=== PATIENT | male | born 1980 | race Caucasian/White ===

== ENCOUNTER 2018-12-27 16:04 | Emergency (ER) | payer OTHER ==
[~2018-12-27] VITALS: Ht 180.3 cm; Wt 84.0 kg
[~2018-12-27 16:04] MED LIST: IBUP-1542 PO; NAR2I NS; OXYC-279 PO
[2018-12-27 16:08] VITALS: Ht 180.3 cm; Wt 84.0 kg
[2018-12-27] MEDS ORDERED: KETOROLAC 60 MG INJ IM STA (16:34)
--- NOTE | 2018-12-27 16:57 | ERD ---
ER Documentation Chief Complaint Chief Complaint rt knee pain , back pain s/p fall while playing basketball HPI 38-year-old male presents complaint of right knee pain as well as lower back pain after falling while playing basketball yesterday. States that he went to the ER yesterday but left before being seen because was too busy. Said he is not able to ambulate. State is not able to fully extend or flex the knee. States that the pain started when he was running and abruptly change directions. Denies any blunt trauma to the knee. Initially states that his lower back has been hurting as well. Denies any numbness, weakness, incontinence, saddle numbness, fevers, chills. ROS All systems reviewed and are negative except as per history of present illness. Medications Home Meds Active Scripts Naloxone Hcl 1mg/1mL 2mL syr (Narcan 1mg/1mL 2mL syr) 1 Mg/Ml Soln, 1 ML NS .Q2- 3 MIN PRN for OPIOID OVERDOSE, #2 SYR Dispense with mucosal atomizer devices. Using mucosal atomizer devices spray 1mL into each nostril. Repeat after 2-3 minutes if no or minimal response. Prov:DEBBIE HIGGINS 12/27/18 Ibuprofen* (Motrin*) 600 Mg Tab, 600 MG PO Q6, #30 TAB Prov:DEBBIE HIGGINS 12/27/18 Oxycodone HCl/Acetaminophen (Percocet 5-325 mg Tablet) 1 Each Tablet, 1-2 EACH PO Q6, #15 TAB Prov:DEBBIE HIGGINS 12/27/18 Allergies Allergies: Coded Allergies: No Known Allergy (Unverified , 12/27/18) FmHx Family History: No diabetes, No coronary disease, No other Physical Exam Vitals Vital Signs Date Temp Pulse Resp B/P (MAP) Pulse Ox O2 O2 Flow FiO2 Time Delivery Rate 12/27/18 97.6 93 18 133/88 96 20:44 (103) 12/27/18 97.8 102 18 121/84 98 16:08 (96) Physical Exam Const: No acute distress Head: Atraumatic Eyes: Normal Conjunctiva ENT: Normal External Ears, Nose and Mouth. Neck: Full range of motion. No meningismus. Resp: Clear to auscultation bilaterally Cardio: Regular rate and rhythm, no murmurs Abd: Soft, non tender, non distended. Normal bowel sounds Skin: No petechiae or rashes Back: No midline or flank tenderness Ext: No cyanosis, or edema Neur: Awake and alert Psych: Normal Mood and Affect back Exam: Skin: No bruising or rash Compartments: Soft Motor: Range of motion testing is limited due to patient's inability to stand because of knee injury. Sensation: Intact to light touch throughout Bones: No midline TTP Lower Extremity - bilateral: Skin: No laceration Compartments: Soft Motor: Limited flexion and extension both passive and active of right knee. Sensation: Intact to light touch FDWS/MF/LF/P surfaces. Bones: tenderness to palpation over the lateral and medial aspect of Right knee. no underlying bony deformity noted.. Joints: No effusion or laxity Pulses/Perfusion: 2+ DP, Capillary refill < 2 seconds Results 24 hrs Current Medications Medications Dose Sig/Carlito Start Time Status Last (Trade) Ordered Route PRN Stop Time Admin Dose Reason Admin Ketorolac 60 mg ONCE STAT 12/27/18 DC 12/27/18 Tromethamine IM 16:34 16:48 (Toradol) 12/27/18 16:37 Oxycodone/ 1 tab ONCE ONCE 12/27/18 DC 12/27/18 Acetaminophen PO 17:00 17:02 (Endocet 12/27/18 17:01 (10/ 325)) Ondansetron 4 mg ONCE STAT 12/27/18 DC HCl (Zofran ODT 18:07 Odt) 12/27/18 18:08 Procedures/MDM DIAGNOSTIC IMAGING REPORT Patient: DAKOTA LAL : 1980 Age: 38 Sex: M MR #: [id number] DOS: 12/27/18 1634 Ordering MD: DEBBIE HIGGINS Location: [facility] Room/Bed: PROCEDURE: CT right lower extremity without contrast. CLINICAL INDICATION: Trauma with pain. TECHNIQUE: CT scan of the right lower extremity from the hip to the ankle was performed on a multi-detector high-resolution CT scanner. Coronal and sagitt al reformatted images were obtained from the axial source images. Images were reviewed on a high-resolution PACS workstation. The total exam CTDI equals 4.2 mGy and the total exam DLP equals 325 mGy-cm. DICOM images are available. 3-D reconstructions were performed on the radiologist's workstation and evaluated for fractures. One or more of the following dose reduction techniques were utilized: 1.) Automated exposure control 2.) Adjustment of the mA +/- kV according to patient's size 3.) Use of iterative reconstruction technique. COMPARISON: None. FINDINGS: Femur: Intact. Tibia: Fracture of the posterior margin of the lateral tibial plateau. Otherwise intact Fibula: Intact. Patella: Intact. Articular cartilages: Thickness is maintained. Joint fluid: There appears to be a small amount of fluid in the suprapatellar bursa. Extraarticular soft tissues: No visible focal swelling. Vascular structures: No visible arterial calcification. No visible venous varicosities. IMPRESSION: 1. Fracture of the posterior margin of the right lateral tibial plateau. 2. No visible fracture of the right femur, right fibula, or patella. 3. Very small right knee hemarthrosis. RPTAT:AAJJ Physician Asher Date Time Electronically viewed and signed by Physician Asher on 12/27/2018 18:02 GW/ CC: DEBBIE HIGGINS [id number] DIAGNOSTIC IMAGING REPORT Patient: DAKOTA LAL : 1980 Age: 38 Sex: M MR #: [id number] DOS: 12/27/18 1634 Ordering MD: DEBBIE HIGGINS Location: [facility] Room/Bed: PROCEDURE: XR Lumbar Spine, 2 or 3 Views CLINICAL INDICATION: Back pain. Injury. TECHNIQUE: Frontal and lateral views of the lumbar spine. COMPARISON: None FINDINGS: VERTEBRAE: Acute nondisplaced fractures of the left transverse processes of L1 and L2 noted. Vertebral body heights are preserved. No compression fractures are identified. Vertebral body alignment is physiologic. DISC SPACES: Intervertebral disc space heights are preserved. No significant disc narrowing demonstrated. SOFT TISSUES: The soft tissues appear unremarkable, as demonstrated. IMPRESSION: Acute nondisplaced fractures of the left transverse processes of L1 and L2 noted. No vertebral compression fractures. RPTAT: HS Carmen Reyna Physician Farm Contract[employer] Date Time Electronically viewed and signed by Carmen Reyna Physician [employer] on 12/27/2018 17:52 C/ CC: DEBBIE HIGGINS [id number] DIAGNOSTIC IMAGING REPORT Patient: DAKOTA LAL : 1980 Age: 38 Sex: M MR #: [id number] DOS: 12/27/18 1829 Ordering MD: DEBBIE HIGGINS Location: [facility] Room/Bed: PROCEDURE: CT Lumbar Spine without contrast. CLINICAL INDICATION: Back pain. TECHNIQUE: CT scan of the lumbar spine was performed on a multi-detector high-resolution CT scanner. Contiguous axial images were obtained without intravenous contrast. Coronal and sagittal reformatted images were also obtained. Images were reviewed on the PACS workstation. DICOM images are available. One or more of the following dose reduction techniques were used: - Automated exposure control. - Adjustment of the mA and/or kV according to patient size. - Use of iterative reconstruction technique. Exam CTD/vol = 14.02 mGy. Total exam DLP = 398.86 mGy-cm. COMPARISON: None. FINDINGS: There is a fracture of the left 12th rib. There are fractures of the left transverse processes of L1 and L2. Lumbar vertebral body heights and alignment are within normal limits. At T12-L1, the disk height is within normal limits. There is no central canal or neural foraminal stenosis. At L1-L2, the disk height is within normal limits. There is no central canal or neural foraminal stenosis. At L2-L3, the disk height is within normal limits. There is no central canal or neural foraminal stenosis. At L3-L4, the disk height is within normal limits. There is no central canal or neural foraminal stenosis. At L4-L5, the disk height is within normal limits. There is no central canal or neural foraminal stenosis. At L5-S1, the disk height is within normal limits. There is no central canal stenosis. There is moderate left and mild right neural foraminal stenosis. There is no paraspinal mass or collection. IMPRESSION: Fractures of the left transverse processes of L1 and L2. Fracture of the left 12th rib. Moderate left and mild right neural foraminal stenosis at L5-S1. .Robin Nix MD, MD Date Time Electronically viewed and signed by .Robin Nix MD, MD on 12/27/2018 19:26 .T/ CC: JOANDEBBIE DONALD [id number] MDM: Dr. Tubbs was consulted on the case and advised the patient has a tibial fracture as well as lumbar fracture. He stated that as long as patient pain is under control and there is no displacement of the tibia patient would be fit for outpatient follow-up. Per CT, there is no indication that there is displacement and pain is controlled with 10 mg of Percocet as well as Toradol in the ER. Patient was put in a knee immobilizer and given crutches and advised to follow- up within [address] Tubbs orthopedist. Splint Assessment: Neurovascularly intact post splint placement with good fit. CT of lumbar also showed rib fractures x-ray. I advised patient that we should also do a chest x-ray to rule out pneumothorax the patient refused chest x-ray as he stated this is an old fracture and denied any dyspnea, chest pain, wheezing, shortness of breath. At this time of low suspicion for neurovascular compromise, cauda equina syndrome, flail chest, pneumothorax, open fracture, dislocation, or any emergent condition. At this time, patient is stable for discharge and outpatient management. I have instructed the patient to follow-up with his/her primary care physician in 1-2 days. I have discussed with the patient the possibility of needing to see a specialist for further workup and imaging studies if symptoms persist. I have instructed the patient to promptly return to the ER for any new or worsening symptoms including but not limited to increased pain, fever, nausea, vomiting, weakness or LOC. The patient and/or family expressed understanding of and agreement with this plan. All questions were answered. Home care instructions were provided. DISCLAIMER: Inadvertent spelling and grammatical errors are likely due to EHR/dictation software use and do not reflect on the overall quality of patient care. Also, please note that the electronic time recorded on this note does not necessarily reflect the actual time of the patient encounter. Departure Diagnosis: Primary Impression: Knee fracture Additional Impressions: Back fracture Rib fracture Condition: Stable DEBBIE HIGGINS Dec 27, 2018 16:57
[2018-12-27] MEDS ORDERED: OXYCODONE/ACETAMINOPHEN (10/325) TAB PO ONE (17:00)
[2018-12-27] MEDS ORDERED: ONDANSETRON (ODT) 4 MG TAB ODT STA (18:07)
[2018-12-27 20:44] VITALS: BP 133/88; PULSE 93; RESP 18
== END 2018-12-27 20:45 | disposition home or self-care (01) ==
LOC: FTE 16:04
DX: S82.141A Displaced bicondylar fracture of right tibia, initial encounter for closed fracture (principal); S32.018A Other fracture of first lumbar vertebra, initial encounter for closed fracture; S32.028A Other fracture of second lumbar vertebra, initial encounter for closed fracture; S22.32XA Fracture of one rib, left side, initial encounter for closed fracture; W18.39XA Other fall on same level, initial encounter; Y92.310 Basketball court as the place of occurrence of the external cause
CPT/HCPCS: 29505; 72072; 72100; 72131; 73700; 96372; J1885; Z7502; Z7610